=== PATIENT | female | born 1970 | race Caucasian/White ===

== ENCOUNTER 2018-10-28 22:19 | Emergency (ER) | payer MEDICAID ==
[~2018-10-28] VITALS: Ht 177.8 cm; Wt 70.3 kg
[2018-10-28 23:03] VITALS: BP 119/61
[2018-10-29 00:19] LABS: Hepatitis B Surface Antibody Negative
[2018-10-29 01:08] LABS: Hepatitis B Surface Antigen Negative (Negative)
== END 2018-10-29 02:01 | disposition home or self-care (01) ==
LOC: ER 22:21
DX: S61.532A Puncture wound without foreign body of left wrist, initial encounter (principal); W27.3XXA Contact with needle (sewing), initial encounter; Y93.89 Activity, other specified; Y99.8 Other external cause status; Y92.89 Other specified places as the place of occurrence of the external cause
CPT/HCPCS: 36415; 86703; 86706; 86803; 87340

== ENCOUNTER 2021-07-26 11:34 | Emergency (ER) | payer MEDICAID ==
[~2021-07-26] VITALS: Ht 180.3 cm; Wt 74.8 kg
[2021-07-26 13:13] VITALS: BP 126/74
[2021-07-26] MEDS ORDERED: TETANUS-DIPTH-ACEL PERTUSSIS 0.5ML SYR Tdap IM ONE (13:45)
[2021-07-26] MEDS ORDERED: AMOX-277 PO (13:52)
[2021-07-26] MEDS ORDERED: ACET-1158 PO (13:52)
== END 2021-07-26 13:53 | disposition home or self-care (01) ==
LOC: ER 11:34
DX: S61.432A Puncture wound without foreign body of left hand, initial encounter (principal); Z86.2 Personal history of diseases of the blood and blood-forming organs and certain disorders involving the immune mechanism; Z79.2 Long term (current) use of antibiotics; Z79.899 Other long term (current) drug therapy; W45.0XXA Nail entering through skin, initial encounter; Y93.89 Activity, other specified; Y92.89 Other specified places as the place of occurrence of the external cause; Y99.8 Other external cause status
CPT/HCPCS: 90471; 90715